=== PATIENT | female | born 1955 | race Caucasian/White ===

== ENCOUNTER → 2016-11-15 | Outpatient (CLI) | payer BC ==
[2016-11-15 13:36] LABS: CALCIUM 8.8 mg/dl (8.5-10.1)
[2016-11-15 13:37] LABS: BLOOD UREA NITROGEN 12 mg/dl (7-18); CARBON DIOXIDE 28 mmol/L (21-32); CHLORIDE 108 mmol/L (98-107); CHOLESTEROL 147 mg/dl (0-200); CREATININE 0.87 mg/dl (0.60-1.20); GLUCOSE 91 mg/dl (70-99); POTASSIUM 3.9 mmol/L (3.5-5.1); SODIUM 142 mmol/L (136-145); TRIGLYCERIDES 63 mg/dl (0-150); VERY LOW DENSITY LIPOPROT CALC 13 mg/dl
[2016-11-15 13:40] LABS: CHOLESTEROL/HDL RATIO 2.4; HDL CHOLESTEROL 62 mg/dl; LDL CHOLESTEROL CALCULATED 72 mg/dl
== END | disposition home or self-care (01) ==
LOC: C.LABMFLN 10:05
PROVIDERS: ATTEND Family Medicine
DX: I10 Essential (primary) hypertension (principal); E03.9 Hypothyroidism, unspecified

== ENCOUNTER → 2017-01-30 | Outpatient (CLI) | payer BC ==
--- NOTE | 2017-01-30 15:42 | DIAGNOSTIC IMAGING REPORT ---
CHEST 2 VIEWS ROUTINE HISTORY: J45.909 [id number] COMPARISON: None. FINDINGS: The heart is mildly enlarged. The lungs are clear. No pleural effusions. No pneumothorax. No rib fractures. IMPRESSION: No acute process. Electronically signed by: Marv Head M.D. 01/30/2017 3:41 PM Dictated Date/Time: 01/30/2017 3:40 PM
== END | disposition home or self-care (01) ==
LOC: C.RAD 15:11
PROVIDERS: ATTEND Family Medicine
DX: J45.909 Unspecified asthma, uncomplicated (principal); R05 Cough

== ENCOUNTER → 2017-05-19 | Outpatient (CLI) | payer BC | END | disposition home or self-care (01) | LOC: C.LABMFLN 09:52 | PROVIDERS: ATTEND Family Medicine | DX: E03.9 Hypothyroidism, unspecified (principal) ==

== ENCOUNTER → 2017-07-06 | Outpatient (CLI) | payer BC ==
--- NOTE | 2017-07-07 07:27 | PULMONARY FUNCTION TEST ---
Pre-bronchodilator spirometry is well within normal limits. There was no significant response to bronchodilator, but this should not preclude a therapeutic trial if clinically warranted. Lung volumes demonstrated the presence of significant air trapping. This could be seen in the presence of bronchospastic airways disease. Diffusion capacity was well within normal limits. Clinical correlation is needed.
== END | disposition home or self-care (01) ==
LOC: C.RC 12:42
PROVIDERS: ATTEND Family Medicine
DX: R06.2 Wheezing (principal)

== ENCOUNTER 2019-02-13 20:43 | Inpatient (IN) ==
[2019-02-13] MEDS ORDERED: dilTIAZem HCl 5 MG/ML 5 ML VIAL IV STA (21:10)
[2019-02-13] MEDS ORDERED: SODIUM CHLORIDE 0.9% 500 ML IV SCH (21:15)
[2019-02-13] MEDS ORDERED: dilTIAZem HCl 125 MG in DEXTROSE 5% 100 ML IV SCH (21:15)
[2019-02-13 21:20] LABS: Basophils # (auto) 0.04 K/uL (0-0.2); Basophils % (auto) 0.3 %; Eosinophils # (auto) 0.13 K/uL (0-0.5); Eosinophils % (auto) 0.8 %; Hematocrit (blood only) 44.5 % (37-47); Hemoglobin 14.6 g/dL (12.0-16.0); Immature Granulocytes # (auto) 0.03 K/uL (0.00-0.02); Immature Granulocytes % (auto) 0.2 %; Lymphocytes # (auto) 3.51 K/uL (1.2-3.4); Lymphocytes % (auto) 22.5 %; Mean Corpuscular Hemoglobin 29.1 pg (25-34); Mean Corpuscular Hgb Conc 32.8 g/dL (32-36); Mean Corpuscular Volume 88.6 fL (80-100); Mean Platelet Volume 10.1 fL (7.4-10.4); Monocytes # (auto) 1.51 K/uL (0.11-0.59); Monocytes % (auto) 9.7 %; Neutrophils # (auto) 10.35 K/uL (1.4-6.5); Neutrophils % (auto) 66.5 %; Platelet Count 153 K/uL (130-400); RDW Coefficient of Variation 13.8 % (11.5-14.5); RDW Standard Deviation 44.7 fL (36.4-46.3); Red Blood Count 5.02 M/uL (4.2-5.4); White Blood Count 15.57 K/uL (4.8-10.8)
[2019-02-13 21:47] LABS: BUN Creatinine Ratio 15.9 (10-20); Blood Urea Nitrogen 17 mg/dl (7-18); Calcium 9.5 mg/dl (8.5-10.1); Carbon Dioxide 31 mmol/L (21-32); Chloride 105 mmol/L (98-107); Creatinine Clr Calc Pharmacy 61.6 ml/min; Est GFR (Non-African American) 54.4; Glucose 107 mg/dl (70-99); Sodium 141 mmol/L (136-145); Troponin I < 0.015 ng/ml (0-0.045)
--- NOTE | 2019-02-13 22:05 | XRay Report ---
XR chest 1V portable CLINICAL HISTORY: Chest pain. Atrial fibrillation. COMPARISON STUDY: Chest CT June 27, 2018. Chest radiograph February 10, 2019. FINDINGS: Lung volumes are normal. Lungs are clear. There is no pneumothorax or pleural effusion. Mod erate cardiomegaly is unchanged. Mediastinal contours are normal. There is no evidence for pulmonary edema. IMPRESSION: No acute cardiopulmonary findings. Electronically signed by: Noé Schroeder M.D. 02/13/2019 10:04 PM
--- NOTE | 2019-02-13 22:37 | Emergency Department Note ---
Entered by Letty Dailey acting as a scribe for Jax Saravia DO History of Present Illness General Chief complaint: Arrhythmia/Palpitations Stated complaint: A FIB ON MONDAY, HEART RATE GOING AGAIN Time Seen by Provider: 02/13/19 20:51 Source: patient History of Present Illness Provider complaint: palpitations Onset (ago): hour(s) 3 Pain Consistency: + other (episode) Quality: + other (palpitations) Exacerbated By: + eating Associated symptoms: + denies other symptoms (pain) and + other (heart rate of 165 but came down, heart "does not feel right") The patient is a 63 year old female who presents to the ED with complaints of an episode of palpitations that began 3 hours ago. The patient notes that she just finished eating dinner when the symptoms started. The patient states that she checked her pulse during this episode and it was 165 but coming down. The patient notes that she was here 3 days ago for Afib and had a cardioversion. The patient denies being in pain but states that her heart does not feel right. Home Medications Home Medications Medication Instructions Recorded Confirmed Type cholecalciferol (vitamin D3) 2,000 unit PO QAM 05/24/18 02/13/19 History [Vitamin D3] multivitamin 2 tab PO QAM 05/24/18 02/13/19 History atenolol 25 mg PO DAILY 10/07/18 02/13/19 History levothyroxine 75 mcg tablet 75 mcg PO QAM #90 tab 01/09/19 02/13/19 Rx rivaroxaban [Xarelto] 20 mg PO DAILY #30 tab 02/10/19 02/13/19 Rx Allergies Allergy/AdvReac Type Severity Reaction Status Date / Time No Known Drug Allergies Allergy Verified 02/13/19 21:56 Past Med/Surg History Medical History Hypothyroidism (Acute) Allergic rhinitis (Acute) Anxiety (Acute) Benign essential hypertension (Acute) Chronic GERD (Acute) Chronic diastolic congestive heart failure (Acute) Hip bursitis (Acute) Mild intermittent asthma (Acute) Mitral valve disorder (Acute) Myalgia (Acute) Plantar fasciitis (Acute) Postoperative atrial fibrillation (Acute) Pulmonary hypertension (Acute) Sinus tachycardia (Acute) Encounter for pre-operative examination Acute diastolic CHF (congestive heart failure) Cardio 05/28: "She appears relatively euvolemic." Mitral regurgitation Cardio consult 05/28: "Recommend transesophageal echo to further evaluate mitral valve. Based on transthoracic findings, it is suspected that she has significant mitral regurgitation and may benefit from mitral valve repair. Further imaging pending. If transesophageal echo confirm significant mitral regurgitation, would follow this with right and left heart catheterization in anticipation of valvular surgery." Osteoarthritis Hypokalemia Pulmonary edema (Acute) Pulmonary embolism (Acute) 05/24 WAS SEEN IN ER. NOW ON XARELTO. Asthma Bronchitis MVP (mitral valve prolapse) HTN (hypertension) History of cardioversion GERD (gastroesophageal reflux disease) Hypothyroidism Obesity Surgical History Hx of hysterectomy History of carpal tunnel release RIGHT History of tonsillectomy and adenoidectomy H/O mitral valve replacement History of bunionectomy LEFT Hx of wisdom tooth extraction Family History Father Lymphoma Deep vein thrombosis Mother Melanoma Deep vein thrombosis Stroke Brother Myocardial infarction Non-Hodgkin lymphoma Grandmother (Maternal) Myocardial infarction Social History Preferred Language: Moroccan Communication Ability: Effective Visual Impairment: No Limitations Hearing Ability: Normal 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 and A total of 10 systems reviewed and were otherwise negative Physical Exam Vital Signs Vital Signs - 24 hr 02/13/19 20:44 02/13/19 21:01 02/13/19 21:14 Temperature 36.7 C Temperature Source Oral Sepsis Recent Fever Within 48 Hours No Sepsis Action Taken by Nursing No Action Required Pulse Rate 143 H 129 H Pulse Rate [Apical] Pulse Rate from SpO2 Sensor 128 H Respiratory Rate 18 18 Respiratory Effort / Characteristics Non-Labored Spontaneous Respiratory Depth Normal Respiratory Pattern Blood Pressure 161/121 H 143/94 H Blood Pressure [Right Arm] Blood Pressure Mean 134 110 Blood Pressure Mean [Right Arm] Pulse Oximetry 96 97 97 Oxygen Delivery Method Room Air Room Air 02/13/19 21:16 02/13/19 21:25 02/13/19 21:28 Temperature Temperature Source Sepsis Recent Fever Within 48 Hours Sepsis Action Taken by Nursing Pulse Rate 105 H 100 H 80 Pulse Rate [Apical] Pulse Rate from SpO2 Sensor 132 H 103 H 92 H Respiratory Rate 18 18 18 Respiratory Effort / Characteristics Respiratory Depth Respiratory Pattern Blood Pressure 102/74 118/69 Blood Pressure [Right Arm] Blood Pressure Mean 83 85 Blood Pressure Mean [Right Arm] Pulse Oximetry 97 97 99 Oxygen Delivery Method 02/13/19 21:31 02/13/19 21:35 02/13/19 21:41 Temperature Temperature Source Sepsis Recent Fever Within 48 Hours Sepsis Action Taken by Nursing Pulse Rate 81 82 86 Pulse Rate [Apical] Pulse Rate from SpO2 Sensor 99 H 82 97 H Respiratory Rate 20 20 18 Respiratory Effort / Characteristics Respiratory Depth Respiratory Pattern Blood Pressure 131/64 130/73 128/72 Blood Pressure [Right Arm] Blood Pressure Mean 86 92 90 Blood Pressure Mean [Right Arm] Pulse Oximetry 97 96 96 Oxygen Delivery Method 02/13/19 21:45 02/13/19 21:47 02/13/19 21:50 Temperature Temperature Source Sepsis Recent Fever Within 48 Hours Sepsis Action Taken by Nursing Pulse Rate 83 99 H Pulse Rate [Apical] 86 Pulse Rate from SpO2 Sensor 87 101 H Respiratory Rate 18 20 18 Respiratory Effort / Characteristics Non-Labored Respiratory Depth Normal Respiratory Pattern Regular Blood Pressure 117/63 100/63 Blood Pressure [Right Arm] 117/63 Blood Pressure Mean 81 75 Blood Pressure Mean [Right Arm] 81 Pulse Oximetry 97 95 96 Oxygen Delivery Method 02/13/19 21:55 02/13/19 22:00 02/13/19 22:01 Temperature Temperature Source Sepsis Recent Fever Within 48 Hours Sepsis Action Taken by Nursing Pulse Rate 98 H 89 99 H Pulse Rate [Apical] Pulse Rate from SpO2 Sensor 93 H 103 H 89 Respiratory Rate 18 19 18 Respiratory Effort / Characteristics Respiratory Depth Respiratory Pattern Blood Pressure 119/59 L 143/75 H Blood Pressure [Right Arm] Blood Pressure Mean 79 97 Blood Pressure Mean [Right Arm] Pulse Oximetry 97 96 96 Oxygen Delivery Method 02/13/19 22:10 02/13/19 22:24 02/13/19 22:25 Temperature Temperature Source Sepsis Recent Fever Within 48 Hours Sepsis Action Taken by Nursing Pulse Rate 109 H 89 77 Pulse Rate [Apical] Pulse Rate from SpO2 Sensor 123 H 107 H 100 H Respiratory Rate 18 18 18 Respiratory Effort / Characteristics Respiratory Depth Respiratory Pattern Blood Pressure 106/72 135/94 129/110 H Blood Pressure [Right Arm] Blood Pressure Mean 83 107 116 Blood Pressure Mean [Right Arm] Pulse Oximetry 97 97 96 Oxygen Delivery Method CONSTITUTIONAL/VITAL SIGNS: Reviewed / noted above. GENERAL: Non-toxic in appearance. INTEGUMENTARY: Warm, dry, and [place]. HEAD: Normocephalic. EYES: without scleral icterus or trauma. ENT/OROPHARYNX: clear and moist. LYMPHADENOPATHY/NECK: Is supple without lymphadenopathy or meningismus. RESPIRATORY: Lungs clear and equal. CARDIOVASCULAR: Rapid irregular heart rate. GI/ABDOMEN: Soft and nontender. No organomegaly or pulsatile mass. No rebound or guarding. Normal bowel sounds. EXTREMITIES: Warm and well perfused. BACK: No CVA tenderness. NEUROLOGICAL: Intact without focal deficits. PSYCHIATRIC: normal affect. MUSCULOSKELETAL: Normally developed with good muscle tone. Course 2056: Past medical records reviewed. The patient was evaluated in room B12. A complete history and physical exam was performed. 2220: I reevaluated the patient and she is feeling better. Her heart rate is under control with the Cardizem drip. 2227: I discussed the patient's case with Dr. Berman [facility], Hospitalist. She will evaluate the patient for further management. Consultations Consultation #1: I discussed the patient's case with Dr. Antonella SMITH, Hospitalist. She will evaluate the patient for further management. Time: 22:27 Administered Medications Diltiazem HCl 125 mg/ Dextrose 125 mls @ 5 mls/hr IV .Q24H [facility]; Protocol Stop: 03/15/19 21:14 Last Admin: 02/13/19 21:22 Dose: 5 mg/hr, 5 mls/hr Documented by: [id number] Cosigned by: [id number] Discontinued Medications Diltiazem HCl (Cardizem) 20 mg IV NOW STA Stop: 02/13/19 21:11 Last Admin: 02/13/19 21:23 Dose: 20 mg Documented by: [id number] Cosigned by: [id number] Sodium Chloride (Nss) 500 mls @ 999 mls/hr IV .Q31M LEEANN Stop: 02/13/19 21:45 Last Infusion: 02/13/19 22:00 Dose: 0 mls/hr Documented by: [id number] Admin: 02/13/19 21:25 Dose: 999 mls/hr Documented by: [id number] Medical Decision Making Differential Diagnosis Differential diagnosis: Etiologies such as premature contractions, electrolyte abnormality, cardiac dysrhythmia, thyroid dysfunction, pulmonary embolism, infection, aundrea rointestinal, as well as others were entertained. Medical Records Attestation: I reviewed the patient's medical records. Home Medications Current Medication List: was personally reviewed by me Laboratory Data Attestation: I reviewed the patient's lab results. Result diagrams: 02/13/19 20:56 02/13/19 22:11 Lab Results 02/13/19 02/13/19 02/13/19 Range/Units 20:56 20:56 22:11 WBC 15.57 H (4.8-10.8) K/uL RBC 5.02 (4.2-5.4) M/uL Hgb 14.6 (12.0-16.0) g/dL Hct 44.5 (37-47) % MCV 88.6 (80-100) fL MCH 29.1 (25-34) pg MCHC 32.8 (32-36) g/dL RDW Std Deviation 44.7 (36.4-46.3) fL RDW Coeff of Cailin 13.8 (11.5-14.5) % Plt Count 153 (130-400) K/uL MPV 10.1 (7.4-10.4) fL Immature Gran % (Auto) 0.2 % Neut % (Auto) 66.5 % Lymph % (Auto) 22.5 % [place] % (Auto) 9.7 % Eos % (Auto) 0.8 % Baso % (Auto) 0.3 % Immature Gran # (Auto) 0.03 H (0.00-0.02) K/uL Neut # (Auto) 10.35 H (1.4-6.5) K/uL Lymph # (Auto) 3.51 H (1.2-3.4) K/uL [place] # (Auto) 1.51 H (0.11-0.59) K/uL Eos # (Auto) 0.13 (0-0.5) K/uL Baso # (Auto) 0.04 (0-0.2) K/uL Sodium 141 (136-145) mmol/L Potassium 4.0 (3.5-5.1) mmol/L Chloride 105 (98-107) mmol/L Carbon Dioxide 31 (21-32) mmol/L Anion Gap 6.0 (3-11) BUN 17 (7-18) mg/dl Creatinine 1.09 (0.6-1.2) mg/dl Est Cr Clr Drug Dosing 61.6 ml/min Est GFR ( Amer) 63.0 Est GFR (Non-Af Amer) 54.4 BUN/Creatinine Ratio 15.9 (10-20) Glucose 107 H (70-99) mg/dl Calcium 9.5 (8.5-10.1) mg/dl Troponin I < 0.015 (0-0.045) ng/ml Imaging Data Radiologist's Impression: Radiology results as stated below per my review and the radiologist's interpretation: XR chest 1V portable CLINICAL HISTORY: Chest pain. Atrial fibrillation. COMPARISON STUDY: Chest CT June 27, 2018. Chest radiograph February 10, 2019. FINDINGS: Lung volumes are normal. Lungs are clear. There is no pneumothorax or pleural effusion. Moderate cardiomegaly is unchanged. Mediastinal contours are normal. There is no evidence for pulmonary edema. IMPRESSION: No acute cardiopulmonary findings. Electronically signed by: Noé Schroeder M.D. 02/13/2019 10:04 PM ECG Data Attestation: I personally reviewed and interpreted this ECG as follows: Indication: palpitations Rate (beats per minute): 140 Rhythm: atrial fibrillation Findings: + other (rapid ventricular response) and + PVC; no ST elevation Blood Pressure Blood Pressure Findings: Normal blood pressure Blood Pressure Disposition: did not require urgent referral MDM Narrative The patient presents with a chief complaint of palpitations. It occurred around 6 or 7:00 tonight when she was eating. The patient states that she was here on Monday and was cardioverted for A. fib. She had been on Coumadin but was started on Xarelto starting on Monday. The patient has palpitations but otherwise no specific complaints. Her physical exam reveals findings consistent with A. fib with RVR. Twelve-lead EKG reveals A. fib with RVR at a rate of about 140. The patient's white blood cell count was 15. Troponin was negative, PRP was normal and a chest x-ray did not show acute process. The patient was placed on Cardizem drip with Cardizem bolus initiated at the onset. The patient remained in A. fib. Her heart rate improved. She was given some IV fluids as well for some mild hypotension. The patient will need at least 8 hours prior to conscious sedation for cardioversion. Because of this, the patient will require observation/admission for heart rate maintenance and cardiology evaluation tomorrow. Impression & Plan Atrial fibrillation with RVR Critical Care Time Critical Care Time: Yes Total Critical Care Time: 35 I have personally spent 35 minutes of critical care time in the direct management of this patient. This includes bedside care, interpretation of diagnostic studies, and testing, discussion with consultants, patient, and family members, and other required patient management activities. This 35 m inutes is in excess of all separately billable procedures. Discharge Plan Visit Data Chief Complaint: Arrhythmia/Palpitations Stated Complaint: A FIB ON MONDAY, HEART RATE GOING AGAIN Other Complaint: Hypertension ED Provider: Jax Saravia Discharge Problem: Atrial fibrillation with RVR Patient Disposition: Being Evaluated by Hospitalist Forms Stand Alone Forms: My [facility] Prescriptions Prescriptions: No Action levothyroxine [Synthroid] 75 mcg tablet 75 mcg PO QAM Qty: 90 RF: 3 atenolol 25 mg tablet 25 mg PO DAILY RF: 0 Xarelto 20 mg tablet 20 mg PO DAILY Qty: 30 RF: 0 multivitamin Tablet 2 tab PO QAM RF: 0 cholecalciferol (vitamin D3) [Vitamin D3] 2,000 unit Tablet 2,000 unit PO QAM RF: 0 Referrals Referrals: Pro,Keegan Santiago MD [Primary Care Provider] - The scribe's documentation has been prepared under my direction and personally reviewed by me in its entirety. I confirm that the note above accurately reflects all work, treatment, procedures, and medical decision making performed by me.
--- NOTE | 2019-02-13 23:44 | History & Physical Report ---
Date of Service February 13, 2019 Assessment & Plan (1) Atrial fibrillation with RVR: Rate controlled on Diltiazem gtt -Maintain on Diltiazem gtt overnight. Presently at 5 -Continue anticoagulation with Xarelto -Continue rate control with atenolol -Patient would most likely benefit from rhythm control. ? Amiodarone. She was on it in the past after her mitral valve repair when she developed post- operative atrial fibrillation. She is somewhat concerned about the intermediate project manager effects of Amiodarone, specifically liver effects and lung effects. -Cardiology consultation - appreciate assistance Present on Admission?: Yes (2) Hypothyroidism: Chronic. Stable -Continue Synthroid Present on Admission?: Yes (3) Anxiety: Chronic. Stable -Continue Sertraline Present on Admission?: Yes (4) Benign essential hypertension: Elevated diastolic pressure at 110 -Contineu Atenolol -Continue to monitor Present on Admission?: Yes (5) Chronic diastolic congestive heart failure: Patient recently stopped taking her Lasix and K supplement. She has been monitoring for edema, SOB and weight gain and states she has had none of the above. She does not appear to be clinically volume overloaded at present. -Continue to hold Lasix and K -Encouraged compliance with low Na diet History of Present Illness Chief Complaint: AF Primary Care Provider: Keegan De León MD Anuradha Murray is a pleasant 63yo C female with history of hypothyroidism, HTN, GERD, AF, MV repair presenting with AF with RVR. Patient with similar presentation 3 days ago and she was electively cardioverted to NSR. She complains of 3 hours of palpitations, some mild weakness. HR 143 on arrival. Er Course: Diltiazem gtt started, NSS Allergies Allergy/AdvReac Type Severity Reaction Status Date / Time No Known Drug Allergies Allergy Verified 02/13/19 21:56 Home Medications Home Medications Medication Instructions Recorded Confirmed Type cholecalciferol (vitamin D3) 2,000 unit PO QAM 05/24/18 02/13/19 History [Vitamin D3] multivitamin 2 tab PO QAM 05/24/18 02/13/19 History atenolol 25 mg PO DAILY 10/07/18 02/13/19 History levothyroxine 75 mcg tablet 75 mcg PO QAM #90 tab 01/09/19 02/13/19 Rx rivaroxaban [Xarelto] 20 mg PO DAILY #30 tab 02/10/19 02/13/19 Rx levothyroxine [Synthroid] 02/14/19 History sertraline 02/14/19 History sertraline 50 mg PO DAILY 02/14/19 02/14/19 History Past Med/Surg History Medical History Hypothyroidism (Acute) Allergic rhinitis (Acute) Anxiety (Acute) Benign essential hypertension (Acute) Chronic GERD (Acute) Chronic diastolic congestive heart failure (Acute) Hip bursitis (Acute) Mild intermittent asthma (Acute) Mitral valve disorder (Acute) Myalgia (Acute) Plantar fasciitis (Acute) Postoperative atrial fibrillation (Acute) Pulmonary hypertension (Acute) Sinus tachycardia (Acute) Encounter for pre-operative examination Acute diastolic CHF (congestive heart failure) Cardio 05/28: "She appears relatively euvolemic." Mitral regurgitation Cardio consult 05/28: "Recommend transesophageal echo to further evaluate mitral valve. Based on transthoracic findings, it is suspected that she has significant mitral regurgitation and may benefit from mitral valve repair. Further imaging pending. If transesophageal echo confirm significant mitral regurgitation, would follow this with right and left heart catheterization in anticipation of valvular surgery." Osteoarthritis Hypokalemia Pulmonary edema (Acute) Pulmonary embolism (Acute) 05/24 WAS SEEN IN ER. NOW ON XARELTO. Asthma Bronchitis MVP (mitral valve prolapse) HTN (hypertension) History of cardioversion GERD (gastroesophageal reflux disease) Hypothyroidism Obesity Surgical History Hx of hysterectomy History of carpal tunnel release RIGHT History of tonsillectomy and adenoidectomy H/O mitral valve replacement History of bunionectomy LEFT Hx of wisdom tooth extraction Family History Father Lymphoma Deep vein thrombosis Mother Melanoma Deep vein thrombosis Stroke Brother Myocardial infarction Non-Hodgkin lymphoma Grandmother (Maternal) Myocardial infarction Social History Preferred Language: Malaysian Communication Ability: Effective Visual Impairment: No Limitations Hearing Ability: Normal 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 Beliefs That Will Affect Care: None marital status: Current Living Situation: Spouse current occupational status: employed Feels Safe at Home: Yes Smoking Status: Never smoker Second Hand Exposure: No ; Hx Alcohol Use: No Hx Substance Use: Yes substance use type: prescription drug Childhood Exposure to Second-Hand Smoke: Yes Dental Care, Regularly: Yes Physical Activity Frequency: Does not Exercise Seatbelt Use: always Sunscreen Use: Yes Review of Systems Review of Systems: All systems reviewed & are unremarkable except as noted in HPI & below Occasional palpitations Physical Exam Physical Exam: General: patient resting comfortably, NAD, non-toxic in appearance, AA&O x 4 Skin: warm, dry, intact, no rashes or lesions HEENT: NC/AT, PERRL, EOMI, anicteric sclera, conjunctiva without injection, external ear normal to inspection and nontender, nares patent, moist mucus membranes, dentition intact, no oropharyngeal lesions, neck supple, trachea midline, no LAD, no thyromegaly, no JVD Heart: +S1/S2, irregularly irregular, no m/r/g Lungs: equal air entry bilaterally, no rales/rhonchi/wheezes Abd: +BS, soft, NT/ND, no masses/organomegaly/ascites Ext: warm, 2+ pulses in UE/LE bilaterally, no clubbing/cyanosis or edema Neuro: nonfocal, patient AA&O x 4, speech intact, no facial droop, moving all extremities on command with equal strength 5/5 Results & Data Vital Signs (Past 12 Hours) Vital Signs Temp Pulse Pulse Resp BP BP Pulse Ox 02/13/19 23:31 98 H 18 121/85 95 02/13/19 23:10 100 H 18 132/93 96 02/13/19 23:00 90 18 112/88 97 02/13/19 22:50 79 18 108/88 94 02/13/19 22:41 102 H 19 141/68 H 96 02/13/19 22:25 77 18 129/110 H 96 02/13/19 22:24 89 18 135/94 97 02/13/19 22:10 109 H 18 106/72 97 02/13/19 22:01 99 H 18 143/75 H 96 02/13/19 22:00 89 19 96 02/13/19 21:55 98 H 18 119/59 L 97 02/13/19 21:50 99 H 18 100/63 96 02/13/19 21:47 86 20 117/63 95 02/13/19 21:45 83 18 117/63 97 02/13/19 21:41 86 18 128/72 96 08/28/19 21:35 82 20 130/73 96 02/13/19 21:31 81 20 131/64 97 02/13/19 21:28 80 18 118/69 99 02/13/19 21:25 100 H 18 97 02/13/19 21:16 105 H 18 102/74 97 02/13/19 21:14 97 02/13/19 21:01 129 H 18 143/94 H 97 02/13/19 20:44 36.7 C 143 H 18 161/121 H 96 Laboratory Results Lab Results 02/13/19 02/13/19 02/13/19 Range/Units 20:56 20:56 22:11 WBC 15.57 H (4.8-10.8) K/uL RBC 5.02 (4.2-5.4) M/uL Hgb 14.6 (12.0-16.0) g/dL Hct 44.5 (37-47) % MCV 88.6 (80-100) fL MCH 29.1 (25-34) pg MCHC 32.8 (32-36) g/dL RDW Std Deviation 44.7 (36.4-46.3) fL RDW Coeff of Cailin 13.8 (11.5-14.5) % Plt Count 153 (130-400) K/uL MPV 10.1 (7.4-10.4) fL Immature Gran % (Auto) 0.2 % Neut % (Auto) 66.5 % Lymph % (Auto) 22.5 % Douglas % (Auto) 9.7 % Eos % (Auto) 0.8 % Baso % (Auto) 0.3 % Immature Gran # (Auto) 0.03 H (0.00-0.02) K/uL Neut # (Auto) 10.35 H (1.4-6.5) K/uL Lymph # (Auto) 3.51 H (1.2-3.4) K/uL Douglas # (Auto) 1.51 H (0.11-0.59) K/uL Eos # (Auto) 0.13 (0-0.5) K/uL Baso # (Auto) 0.04 (0-0.2) K/uL Sodium 141 (136-145) mmol/L Potassium 4.0 (3.5-5.1) mmol/L Chloride 105 (98-107) mmol/L Carbon Dioxide 31 (21-32) mmol/L Anion Gap 6.0 (3-11) BUN 17 (7-18) mg/dl Creatinine 1.09 (0.6-1.2) mg/dl Est Cr Clr Drug Dosing 61.6 ml/min Est GFR ( Amer) 63.0 Est GFR (Non-Af Amer) 54.4 BUN/Creatinine Ratio 15.9 (10-20) Glucose 107 H (70-99) mg/dl Calcium 9.5 (8.5-10.1) mg/dl Phosphorus (2.5-4.9) mg/dl Magnesium (1.8-2.4) mg/dl Troponin I < 0.015 (0-0.045) ng/ml 02/13/19 Range/Units 22:11 WBC (4.8-10.8) K/uL RBC (4.2-5.4) M/uL Hgb (12.0-16.0) g/dL Hct (37-47) % MCV (80-100) fL MCH (25-34) pg MCHC (32-36) g/dL RDW Std Deviation (36.4-46.3) fL RDW Coeff of Cailin (11.5-14.5) % Plt Count (130-400) K/uL MPV (7.4-10.4) fL Immature Gran % (Auto) % Neut % (Auto) % Lymph % (Auto) % Douglas % (Auto) % Eos % (Auto) % Baso % (Auto) % Immature Gran # (Auto) (0.00-0.02) K/uL Neut # (Auto) (1.4-6.5) K/uL Lymph # (Auto) (1.2-3.4) K/uL Douglas # (Auto) (0.11-0.59) K/uL Eos # (Auto) (0-0.5) K/uL Baso # (Auto) (0-0.2) K/uL Sodium (136-145) mmol/L Potassium (3.5-5.1) mmol/L Chloride (98-107) mmol/L Carbon Dioxide (21-32) mmol/L Anion Gap (3-11) BUN (7-18) mg/dl Creatinine (0.6-1.2) mg/dl Est Cr Clr Drug Dosing ml/min Est GFR ( Amer) Est GFR (Non-Af Amer) BUN/Creatinine Ratio (10-20) Glucose (70-99) mg/dl Calcium (8.5-10.1) mg/dl Phosphorus 2.8 (2.5-4.9) mg/dl Magnesium 2.2 (1.8-2.4) mg/dl Troponin I (0-0.045) ng/ml Diagnostic Findings XR chest 1V portable CLINICAL HISTORY: Chest pain. Atrial fibrillation. COMPARISON STUDY: Chest CT June 27, 2018. Chest radiograph February 10, 2019. FINDINGS: Lung volumes are normal. Lungs are clear. There is no pneumothorax or pleural effusion. Moderate cardiomegaly is unchanged. Mediastinal contours are normal. There is no evidence for pulmonary edema. IMPRESSION: No acute cardiopulmonary findings. Electronically signed by: Noé Schroeder M.D. 02/13/2019 10:04 PM Dictated: 02/13/19 2203 Transcribed: 02/13/19 220 ECG Additional Comments: AF at 125bpm, PVCs, , no acute ischemic changes Code Status & VTE Plan Code Status FULL VTE Prophylaxis Plan VTE Prophylaxis will be ordered: Yes PG Care Time/CCT Total # of Minutes Spent Total Time Spent with Patient: Total time spent is greater than 50% in coordination of care (as documented) at patient's floor/unit and/or counseling patient:
[2019-02-14] MEDS ORDERED: ONDANSETRON INJ 2 MG/ML 2 ML VIAL IV PRN (00:20)
[2019-02-14] MEDS ORDERED: ACETAMINOPHEN 325 MG TAB PO PRN (00:20)
[2019-02-14 00:41] LABS: Magnesium 2.2 mg/dl (1.8-2.4); Phosphorus 2.8 mg/dl (2.5-4.9)
[2019-02-14 06:02] LABS: Basophils # (auto) 0.02 K/uL (0-0.2); Basophils % (auto) 0.2 %; Eosinophils % (auto) 0.9 %; Hematocrit (blood only) 40.9 % (37-47); Hemoglobin 13.2 g/dL (12.0-16.0); Immature Granulocytes # (auto) 0.03 K/uL (0.00-0.02); Immature Granulocytes % (auto) 0.3 %; Lymphocytes # (auto) 2.67 K/uL (1.2-3.4); Lymphocytes % (auto) 24.7 %; Mean Corpuscular Hemoglobin 28.1 pg (25-34); Mean Corpuscular Hgb Conc 32.3 g/dL (32-36); Mean Corpuscular Volume 87.2 fL (80-100); Mean Platelet Volume 10.3 fL (7.4-10.4); Monocytes # (auto) 0.82 K/uL (0.11-0.59); Monocytes % (auto) 7.6 %; Neutrophils # (auto) 7.19 K/uL (1.4-6.5); Neutrophils % (auto) 66.3 %; Platelet Count 131 K/uL (130-400); RDW Coefficient of Variation 13.9 % (11.5-14.5); RDW Standard Deviation 43.8 fL (36.4-46.3); Red Blood Count 4.69 M/uL (4.2-5.4); White Blood Count 10.83 K/uL (4.8-10.8)
[2019-02-14] MEDS ORDERED: LEVOTHYROXINE SODIUM 75 MCG TABLET PO SCH (06:30)
[2019-02-14 06:38] LABS: BUN Creatinine Ratio 19.3 (10-20); Calcium 8.5 mg/dl (8.5-10.1); Creatinine Clr Calc Pharmacy 95.3 ml/min; Est GFR (African American) 107.6; Est GFR (Non-African American) 92.9; Potassium 3.7 mmol/L (3.5-5.1)
[2019-02-14] MEDS ORDERED: Nursing to Pharmacy Communication ONE (07:43)
[2019-02-14] MEDS ORDERED: RIVAROXABAN 20 MG TAB PO SCH ×2 (09:00→17:00)
[2019-02-14] MEDS ORDERED: SERTRALINE HCL 50 MG TABLET PO SCH (09:00)
[2019-02-14] MEDS ORDERED: ATENOLOL 25 MG TABLET PO SCH (09:00)
--- NOTE | 2019-02-14 09:27 | Cardiology Consultation ---
Date of Consultation February 14, 2019 Assessment & Plan (1) Atrial fibrillation with RVR: Paroxysmal atrial fibrillation. She underwent cardioversion on 02/10/2019 and once again developed atrial fibrillation with symptoms on 02/13/2019. Initially, plan was to initiate antiarrhythmic therapy, such as flecainide. However after discussion, she prefers a rate control strategy. Her rate has been well controlled with only diltiazem drip at a rate of 5 milligrams/hour. Initiate diltiazem 30 mg p.o. q.6 hours. This can be titrated as needed. Increase atenolol to 50 mg daily. Continue anticoagulation. If Eliquis is affordable, would consider Eliquis in place of Xarelto. Creatinine clearance currently is acceptable for diltiazem with Xarelto but if her creatinine clearance decreases in the future, her bleeding risk could increase. Dose of Eliquis would be 5 mg twice daily. If rate control strategy fails or if quality of life is negatively affected due to symptoms, would consider flecainide. Before discharge, would recommend that she ambulate the hallways to make sure that her heart rate is acceptable with ambulation. (2) Chronic diastolic congestive heart failure: She has weaned herself from diuretic therapy. She has not required any diuretics recently. She appears euvolemic. Her diastolic CHF was likely related to her mitral valve regurgitation and she is now status post mitral valve repair. (3) Mitral valve disorder: Status post mitral valve repair. Continue to monitor as an outpatient. (4) HTN (hypertension): Blood pressure acceptable. Adjusting rate control medications as above. Monitor for hypotension. (5) Leukocytosis: As per primary service. White blood count has improved today. No symptoms of infection. (6) Disposition: From a cardiology standpoint, she can be discharged home when she is on oral medications with adequate rate control and acceptable symptoms. Plan of care discussed with primary hospitalist service. History of Present Illness Reason for Consultation: Atrial fibrillation with RVR Requesting Physician: Dr. Rivera Attending Physician: Gayle Hussein MD History of Present Illness Mrs. Murray is a pleasant 63-year-old female with past medical history of mitral valve prolapse with severe regurgitation status post mitral valve repair, PFO closure, paroxysmal atrial fibrillation status post cardioversion 02/10/2019, diastolic CHF, PE, hypertension, and dyslipidemia. She was hospitalized at [facility] on 05/24/2018 with shortness of breath and hypoxia. She was found to have a small PE but also severe mitral regurgitation and was felt to be in diastolic CHF exacerbation. She was diuresed with improvement of her symptoms. She later underwent transesophageal echo and cardiac catheterization, prompting mitral valve repair at [facility] in June of 2018. She has had the following studies/procedures: 1. Echocardiogram 05/25/18: Normal LV size and systolic function. EF 60-65%. No wall motion abnormalities. LA severely dilated. Posterior mitral valve leaflet prolapse with moderate to severe eccentric anteriorly directed mitral regurgitation. RVSP 49. 2. JUSTO 06/01/18: Normal LV size and systolic function. EF 60-65%. No regional wall motion abnormalities. No LV hypertrophy. 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 Systolic reversal of pulmonary venous flow. PFO with left to right inter atrial shunt. Moderate pulmonary hypertension with estimated RSVP of 53 mmHg. 3. Cardiac Cath 06/01/18: No coronary artery disease. PCWP 18 mmHg with bingham V waves. PA 46/16 with mean of 26 mmHg. CI 2.3. PVR 1.8 Wood units. 4. Mitral valve repair [facility] 07/13/2018: Minimally invasive mitral valve repair via right mini thoracotomy and closure of PFO. Folding plasty in mid P2. Rios Chord plasty in medial P2. Closure of deep indentation between P2/P3. Edge to edge stitch an A3/P3. Annuloplasty using #32 mm Arango annuloplasty band. Postoperative atrial fibrillation which resolved with amiodarone. CT surgeon was Dr. Aragon. 5. Echo 09/04/2018: Normal LV size and systolic function. EF 55%. No regional wall motion abnormalities. No LVH. Top-normal transvalvular gradient following mitral valve repair with annuloplasty ring. Mild MR. Normal estimated RVSP of 21 mmHg. 6. Event monitor 08/21/2018 - 09/19/2018: Sinus rhythm. <10 seconds of atrial arrhythmia; possibly atrial fibrillation. PACs and PVCs. "Dizzy" occurred during NSR. 7. Cardioversion 02/10/2019: For symptomatic atrial fibrillation with rapid ventricular response. She underwent cardioversion only a few days ago. When discharged, she was in sinus rhythm. She once again developed symptoms of atrial fibrillation last evening at approximately 1800 while out to dinner with a friend. Pulse oximeter demonstrated a heart rate at home in the 160s. She felt palpitations but denied chest pain, shortness of breath, syncope, near-syncope. While on diltiazem drip after admitted, her heart rate is acceptable and her symptoms are much improved. She now notices only occasional brief episode of palpitations that are not overly bothersome to her. She has tolerated anticoagulation therapy without bleeding such as melena, hematochezia, or hematuria. She denies nausea, vomiting, fevers, edema, or other symptoms. She states that she came to the emergency department because she was worried that something could happen. Review of systems: As above. Review of systems otherwise negative/unremarkable. Family history: Mother had CABG x 5 in her 60s. Brother had heart disease with PCI. Father had heart issues as well. 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 She currently resides in [place] with her . They have no children together. She denies any history of alcohol or tobacco use. There were no family members or friends at the bedside during our visit this morning. Allergies Allergy/AdvReac Type Severity Reaction Status Date / Time No Known Drug Allergies Allergy Verified 02/13/19 21:56 Home Medications Home Medications Medication Instructions Recorded Confirmed Type cholecalciferol (vitamin D3) 2,000 unit PO QAM 05/24/18 02/13/19 History [Vitamin D3] multivitamin 2 tab PO QAM 05/24/18 02/13/19 History atenolol 25 mg PO DAILY 10/07/18 02/13/19 History levothyroxine 75 mcg tablet 75 mcg PO QAM #90 tab 01/09/19 02/13/19 Rx rivaroxaban [Xarelto] 20 mg PO DAILY #30 tab 02/10/19 02/13/19 Rx levothyroxine [Synthroid] 02/14/19 History sertraline 02/14/19 History sertraline 50 mg PO DAILY 02/14/19 02/14/19 History Patient History Medical History Hypothyroidism (Acute) Allergic rhinitis (Acute) Anxiety (Acute) Benign essential hypertension (Acute) Chronic GERD (Acute) Chronic diastolic congestive heart failure (Acute) Hip bursitis (Acute) Mild intermittent asthma (Acute) Mitral valve disorder (Acute) Myalgia (Acute) Plantar fasciitis (Acute) Postoperative atrial fibrillation (Acute) Pulmonary hypertension (Acute) Sinus tachycardia (Acute) Encounter for pre-operative examination Acute diastolic CHF (congestive heart failure) Cardio 05/28: "She appears relatively euvolemic." Mitral regurgitation Cardio consult 05/28: "Recommend transesophageal echo to further evaluate mitral valve. Based on transthoracic findings, it is suspected that she has significant mitral regurgitation and may benefit from mitral valve repair. Further imaging pending. If transesophageal echo confirm significant mitral regurgitation, would follow this with right and left heart catheterization in anticipation of valvular surgery." Osteoarthritis Hypokalemia Pulmonary edema (Acute) Pulmonary embolism (Acute) 05/24 WAS SEEN IN ER. NOW ON XARELTO. Asthma Bronchitis MVP (mitral valve prolapse) HTN (hypertension) History of cardioversion GERD (gastroesophageal reflux disease) Hypothyroidism Obesity Surgical History Hx of hysterectomy History of carpal tunnel release RIGHT History of tonsillectomy and adenoidectomy H/O mitral valve replacement History of bunionectomy LEFT Hx of wisdom tooth extraction Family History Father Lymphoma Deep vein thrombosis Mother Melanoma Deep vein thrombosis Stroke Brother Myocardial infarction Non-Hodgkin lymphoma Grandmother (Maternal) Myocardial infarction Social History Preferred Language: Vincentian Communication Ability: Effective Visual Impairment: No Limitations Hearing Ability: Normal 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 Alert and oriented. HEENT: Anicteric sclera. Neck: No JVD. No bruits. Normal carotid upstrokes bilaterally. Cardiac: PMI was nondisplaced. No ventricular heave. Irregularly irregular with reasonable heart rate control. Normal S1-S2. No murmurs, rubs, or gallops. Pulmonary: Clear to auscultation bilaterally without wheezes, rales, or rhonchi. Abdomen: Soft, nontender, nondistended, with normoactive bowel sounds. No bruits noted. Extremities: 2+ radial pulses bilaterally. 2+ posterior tibialis pulses bilaterally. No pitting edema or cyanosis. Psychiatric: Affect appears appropriate. Results & Data Vital Signs (Past 12 Hours) Vital Signs Temp Pulse Pulse Resp BP BP BP 02/14/19 07:35 36.6 C 82 17 118/80 02/14/19 03:42 36.7 C 93 H 20 115/81 02/14/19 00:30 36.8 C 114 H 18 141/73 H 02/13/19 23:51 104 H 18 108/96 02/13/19 23:40 91 H 18 148/106 H 02/13/19 23:31 98 H 18 121/85 02/13/19 23:10 100 H 18 132/93 02/13/19 23:00 90 18 112/88 02/13/19 22:50 79 18 108/88 02/13/19 22:41 102 H 19 141/68 H 02/13/19 22:25 77 18 129/110 H 02/13/19 22:24 89 18 135/94 02/13/19 22:10 109 H 18 106/72 02/13/19 22:01 99 H 18 143/75 H 02/13/19 22:00 89 19 02/13/19 21:55 98 H 18 119/59 L 02/13/19 21:50 99 H 18 100/63 02/13/19 21:47 86 20 117/63 02/13/19 21:45 83 18 117/63 02/13/19 21:41 86 18 128/72 02/13/19 21:35 82 20 130/73 02/13/19 21:31 81 20 131/64 02/13/19 21:28 80 18 118/69 02/13/19 21:25 100 H 18 Pulse Ox 02/14/19 07:35 96 02/14/19 03:42 94 02/14/19 00:30 95 02/13/19 23:51 94 02/13/19 23:40 94 02/13/19 23:31 95 02/13/19 23:10 96 02/13/19 23:00 97 02/13/19 22:50 94 02/13/19 22:41 96 02/13/19 22:25 96 02/13/19 22:24 97 02/13/19 22:10 97 02/13/19 22:01 96 02/13/19 22:00 96 02/13/19 21:55 97 02/13/19 21:50 96 02/13/19 21:47 95 02/13/19 21:45 97 02/13/19 21:41 96 02/13/19 21:35 96 02/13/19 21:31 97 02/13/19 21:28 99 02/13/19 21:25 97 Laboratory Results Laboratory Results - last 24 hr 02/13/19 02/13/19 02/13/19 20:56 20:56 22:11 WBC 15.57 H RBC 5.02 Hgb 14.6 Hct 44.5 MCV 88.6 MCH 29.1 MCHC 32.8 RDW Std Deviation 44.7 RDW Coeff of Cailin 13.8 Plt Count 153 MPV 10.1 Immature Gran % (Auto) 0.2 Neut % (Auto) 66.5 Lymph % (Auto) 22.5 Gall[place] % (Auto) 9.7 Eos % (Auto) 0.8 Baso % (Auto) 0.3 Immature Gran # (Auto) 0.03 H Neut # (Auto) 10.35 H Lymph # (Auto) 3.51 H Gall[place] # (Auto) 1.51 H Eos # (Auto) 0.13 Baso # (Auto) 0.04 Sodium 141 Potassium 4.0 Chloride 105 Carbon Dioxide 31 Anion Gap 6.0 BUN 17 Creatinine 1.09 Est Cr Clr Drug Dosing 61.6 Est GFR ( Amer) 63.0 Est GFR (Non-Af Amer) 54.4 BUN/Creatinine Ratio 15.9 Glucose 107 H Calcium 9.5 Phosphorus Magnesium Troponin I < 0.015 02/13/19 02/14/19 02/14/19 22:11 05:22 05:22 WBC 10.83 H RBC 4.69 Hgb 13.2 Hct 40.9 MCV 87.2 MCH 28.1 MCHC 32.3 RDW Std Deviation 43.8 RDW Coeff of Cailin 13.9 Plt Count 131 MPV 10.3 Immature Gran % (Auto) 0.3 Neut % (Auto) 66.3 Lymph % (Auto) 24.7 Gall[place] % (Auto) 7.6 Eos % (Auto) 0.9 Baso % (Auto) 0.2 Immature Gran # (Auto) 0.03 H Neut # (Auto) 7.19 H Lymph # (Auto) 2.67 Gall[place] # (Auto) 0.82 H Eos # (Auto) 0.10 Baso # (Auto) 0.02 Sodium 142 Potassium 3.7 Chloride 108 H Carbon Dioxide 26 Anion Gap 8.0 BUN 14 Creatinine 0.70 D Est Cr Clr Drug Dosing 95.3 Est GFR ( Amer) 107.6 Est GFR (Non-Af Amer) 92.9 BUN/Creatinine Ratio 19.3 Glucose 90 Calcium 8.5 Phosphorus 2.8 Magnesium 2.2 Troponin I Diagnostic Findings Telemetry personally reviewed: Atrial fibrillation. Initially, with rapid ventricular response but with diltiazem drip, rate has improved. ECG personally reviewed: ECG 02/13/2019: AFib with RVR and PVCs versus aberrantly conducted complexes at [address]/T-wave abnormalities. Medications Administered Current Inpatient Medications Acetaminophen (Tylenol) 650 mg PO Q4H PRN PRN Reason: Pain or Fever Stop: 03/16/19 00:19 Last Admin: 02/14/19 05:30 Dose: 650 mg Documented by: Atenolol (Tenormin) 50 mg PO DAILY [facility] Stop: 03/16/19 09:14 Diltiazem HCl (Cardizem) 30 mg PO Q6H [facility] Stop: 03/16/19 09:14 Diltiazem HCl 125 mg/ Dextrose 125 mls @ 5 mls/hr IV .Q24H [facility]; Protocol Stop: 03/15/19 21:14 Last Admin: 02/13/19 21:22 Dose: 5 mg/hr, 5 mls/hr Documented by: Levothyroxine Sodium (Synthroid) 75 mcg PO DAILYBB [facility] Stop: 03/16/19 06:29 Last Admin: 02/14/19 05:26 Dose: 75 mcg Documented by: Ondansetron HCl (Zofran) 4 mg IV Q6H PRN PRN Reason: Nausea Stop: 03/16/19 00:19 Rivaroxaban (Xarelto) 20 mg PO DAILY@1700 [facility] Stop: 03/16/19 16:59 Sertraline HCl (Zoloft) 50 mg PO DAILY [facility] Stop: 03/16/19 08:59 Last Admin: 02/14/19 07:40 Dose: 50 mg Documented by: PG Care Time/CCT Total # of Minutes Spent Total Time Spent with Patient: Total time spent is greater than 50% in coordination of care (as documented) at patient's floor/unit and/or counseling patient:
[2019-02-14] MEDS ORDERED: ATENOLOL 25 MG TABLET PO ONE (09:30)
[2019-02-14] MEDS ORDERED: dilTIAZem HCL 30 MG TAB PO SCH (10:00)
--- NOTE | 2019-02-14 14:56 | Discharge Summary ---
Date of Service February 14, 2019 Admission HPI Per Admitting Provider Anuradha Murray is a pleasant 63yo C female with history of hypothyroidism, HTN, GERD, AF, MV repair presenting with AF with RVR. Patient with similar presentation 3 days ago and she was electively cardioverted to NSR. She complains of 3 hours of palpitations, some mild weakness. HR 143 on arrival. Er Course: Diltiazem gtt started, NSS Admission Exam Per Admitting Provider General: patient resting comfortably, NAD, non-toxic in appearance, AA&O x 4 Skin: warm, dry, intact, no rashes or lesions HEENT: NC/AT, PERRL, EOMI, anicteric sclera, conjunctiva without injection, external ear normal to inspection and nontender, nares patent, moist mucus membranes, dentition intact, no oropharyngeal lesions, neck supple, trachea midline, no LAD, no thyromegaly, no JVD Heart: +S1/S2, irregularly irregular, no m/r/g Lungs: equal air entry bilaterally, no rales/rhonchi/wheezes Abd: +BS, soft, NT/ND, no masses/organomegaly/ascites Ext: warm, 2+ pulses in UE/LE bilaterally, no clubbing/cyanosis or edema Neuro: nonfocal, patient AA&O x 4, speech intact, no facial droop, moving all extremities on command with equal strength 5/5 Principal Diagnosis Atrial Fibrillation with Rapid Ventricular Response Discharge Exam Constitutional WD/WN, vitals as above Respiratory normal respiratory effort, lungs clear to auscultation Cardiovascular RRR, no murmur, no edema Gastrointestinal (Abdomen) normal bowel sounds, soft, nontender, no hepatosplenomegaly Skin no rashes, warm and dry Psychiatric A+Ox3, euthymic affect Discharge Data Allergies Allergy/AdvReac Type Severity Reaction Status Date / Time No Known Drug Allergies Allergy Verified 02/13/19 21:56 Consultations 02/13/19 22:37 ED Decision to Admit Stat 02/14/19 00:20 Consult Cardiology Routine Hospital Course (1) Atrial fibrillation with RVR: 63 yo F PMHx AFib, hypothyroidism, anxiety initially seen here yesterday for AFib with RVR now in sinus rhythm rate controlled with diltiazem and atenolol PO. AFib with RVR - Came to hospital for palpitations and was found to be in HR 140s, dilt drip started - Today weaned off of dilt drip and started diltiazem 120mg ER to take daily upon discharge. - Increased home atenolol dose from 25 mg daily to 50 mg daily. - Cardiology suggested switching to Eliquis from home Xarelto if CrCl goes down, however pt refused switching meds at this time and will follow up with Cardiology. - Has Cards f/u 02/26/19 and PCP f/u 02/21/19. Hypothyroidism - continue home levothyroxine dose Anxiety - Continue home sertraline dose Disposition: Home with Self Care (2) Hypothyroidism: (3) Anxiety: Total Time Total Time Spent Total Time Spent (In Minutes): 30 Discharge Plan Discharge Items Patient Disposition: Home - Self-Care Reason For Visit: AF WITH RVR Discharge Diagnosis: Atrial Fibrillation Discharge Goals: Improve disease control, Learn about illness and Prevent disease Activity: Resume your previous activity Non-emergency contact: Primary Care Provider Call non-emergency contact if: you have any medication questions and your symptoms worsen Follow-up/Referrals: Osmar Higginbotham PA-C [Physician Vice President Of Business Development] - 02/26/19 9:30 am (Please, follow up at [facility] Cardiology Office with Osmar Higginbotham PA-C on MondayFebruary 26 at 9:30 am. *THIS APPOINTMENT WILL BE AT THE [facility] OFFICE. THE OFFICE IS LOCATED AT [address] [place] [address] IN [place]. If you have any questions or need to change this appointment, call the office at [phone].) Keegan De León MD [Primary Care Provider] - 02/21/19 2:30 pm (Please, follow up at Dr. De León's office with his miner assistant, Reva Tillman PA-C, on February 21 at 2:30 pm. *If you need to change this appointment, call their office at [phone].) Diet: Regular Addtl Provider Instructions: You were admitted to the hospital for heart palpitations after it was found in the ER that you were back in AFib. Here we gave you medications to slow down your heart rate (diltiazem by IV and atenolol), and now that your heart rate has slowed down and you are feeling better we and the Cardiology team are comfortable discharging you with those two medications in oral form, which have been sent to your [facility] pharmacy. We did not change your blood thinner as you felt more comfortable taking the once a day pill. You can discuss this further with the Supervisor Audit Clerks. You will take the diltiazem 120mg once daily. You will take the atenolol 50mg once daily. You have a doctor's appointment with Dr. De León on February 21 at 2:30PM. You have an appointment with the Cardiology office with sOmar Higginbotham on February 26 at 9:30AM. If before these appointments you have any chest pain, palpitations, shortness of breath, dizziness, or feeling like you are going to pass out, please come back to the hospital. Prescriptions: New diltiazem HCl 120 mg capsule,extended release 24 hr 120 mg PO DAILY Qty: 30 RF: 0 atenolol 50 mg tablet 50 mg PO DAILY Qty: 30 RF: 0 Continued levothyroxine [Synthroid] 75 mcg tablet 75 mcg PO QAM Qty: 90 RF: 3 Xarelto 20 mg tablet 20 mg PO DAILY Qty: 30 RF: 0 multivitamin Tablet 2 tab PO QAM RF: 0 cholecalciferol (vitamin D3) [Vitamin D3] 2,000 unit Tablet 2,000 unit PO QAM RF: 0 sertraline 25 mg tablet 50 mg PO DAILY RF: 0 Discontinued atenolol 25 mg tablet 25 mg PO DAILY RF: 0 levothyroxine [Synthroid] 75 mcg tablet RF: 0 sertraline 25 mg tablet RF: 0 Stand-Alone Forms: [facility] Discharge Orders: Discharge Order (Routine); Ordered 02/14/19 Ordered By: Georgina Aguilar Admission Data Admit Date/Time: 02/13/19 23:22 Attending Provider: Gayle Hussein Admit Provider: Kiara Rivera Primary Care Provider: Keegan De León Other Providers: Kiara Rivera ; Alexandre Huerta Service: Telemetry Other Interventions: Discharge Summary Assessment (RN) Last Done: 02/14/19 15:04 DC Date/Time DO NOT enter until pt leaves facility: 02/14/19 15:23 Supervising Physician Co-Signing Physician Notes Resident Physician Supervision Note: I independently interviewed and examined the patient and verified the thomson history and physical, reviewed labs and image studies, discussed the case with the resident Dr. Aguilar and agree with the findings and care plan. Time spent in discharge 35 min Resident Activity Tracking Resident Involvement: Resident Care Provided Care Provided: Adult Hospital Medicine
[2019-02-15] MEDS ORDERED: ATENOLOL 25 MG TABLET PO SCH (09:00)
== END 2019-02-14 15:23 | disposition home or self-care (01) | DRG 309 ==
LOC: ED 20:43 → SUATTDRO 23:22 → 2S 23:22